=== PATIENT | female | born 1985 | race Caucasian/White ===

== ENCOUNTER 2017-02-08 07:49 | Emergency (ER) | payer BC, OTHER ==
[~2017-02-08] VITALS: Ht 170.2 cm; Wt 72.0 kg
[~2017-02-08 07:49] MED LIST: DICY1TAB26 PO; LOMO PO; ZOFR4TAB3 SL
[2017-02-08 07:55] VITALS: BP 120/81; PULSE 82; RESP 18; TEMP 97.5; O2SAT 100
--- NOTE | 2017-02-08 08:16 | PD ---
HPI Chief Complaint: Musculoskeletal Complaint Time Seen by Provider: 08:13 Travel History International Travel<30 days: No Contact w/Intl Traveler<30days: No Traveled to known affect area: No History of Present Illness HPI This patient complains of left hand pain. 2 hours ago she tripped over her dog and fell and landed on her left hand. No head or neck injury. Symptoms are of moderate severity. Worse with movement. PFSH Past Medical History Medical History: Denies Significant Hx Immunizations Current: Yes Influenza Vaccination: No ?: Not LMP: 02/02/17 Past Surgical History Surgical History: No Previous Surgery Social History Alcohol Use: Yes (SOCIALLY) Tobacco Use: No Substance Use: No Allergies-Medications (Allergen,Severity, Reaction): Coded Allergies: No Known Allergies (Unverified , 02/08/17) Reported Meds & Prescriptions Reported Meds & Active Scripts Active No Active Prescriptions or Reported Medications Review of Systems General / Constitutional: No: Fever HENT: No: Headaches Cardiovascular: No: Chest Pain or Discomfort Physical Exam Narrative SKIN: Focused skin assessment reveals no rash or ulcers. Skin is warm and dry. Palpation shows no induration or nodules. Psych: Normal mood and affect. Normal insight and judgment. Left hand: No obvious deformity. There is tenderness at the lateral aspect of the hand over metacarpals 4 and 5. No bruising. Neurovascularly intact. Bit of swelling in the lateral hand is present Data Data Last Documented VS Vital Signs Date Time Temp Pulse Resp B/P Pulse Ox O2 Delivery O2 Flow Rate FiO2 02/08/17 07:55 97.5 82 18 120/81 100 Orders Hand, Complete ([id number]) (02/08/17 ) [facility] Medical Decision Making Medical Screen Exam Complete: Yes Emergency Medical Condition: Yes Medical Record Reviewed: Yes Differential Diagnosis Hand fracture, finger dislocation, contusion Narrative Course I have reviewed the patient's electronic medical record. I reviewed her left hand x-rays which show no acute fracture Placed her in an ulnar gutter splint given the pain and swelling she has there Recommend ice and elevation and follow-up with her physician Offered her pain medicine but she declines Diagnosis Primary Impression: Contusion of left hand, initial encounter Additional Instructions: Ice and elevate left hand Wear splint Follow-up with your physician Med/Other Pt SpecificInfo: Other Scripts No Active Prescriptions or Reported Meds Disposition: 01 DISCHARGE HOME Condition: Stable Delvin Nick MD Feb 08, 2017 08:16
--- NOTE | 2017-02-08 09:13 | RADHPO ---
EXAM DATE/TIME: 02/08/2017 08:30 [facility] COMPARISON: No previous studies available for comparison. INDICATIONS : Left hand pain; fall this morning. MEDICAL HISTORY : Previous fracture 4th and 5th digits. SURGICAL HISTORY : None. ENCOUNTER: Initial ACUITY: 1 day PAIN SCORE: 2/10 LOCATION: Left hand. FINDINGS: Three view examination of the left hand demonstrates no soft tissue swelling, dislocation, or fractur e. The carpal bones appear intact. The interphalangeal and metacarpophalangeal joints are intact. Bony mineralization is normal. CONCLUSION: No acute disease. Milo Reese MD on February 08, 2017 at 9:10 Board Certified Radiologist. This report was verified electronically.
== END 2017-02-08 09:18 | disposition home or self-care (01) ==
LOC: PHED 07:49
DX: S60.222A Contusion of left hand, initial encounter (principal); W01.0XXA Fall on same level from slipping, tripping and stumbling without subsequent striking against object, initial encounter; Y93.9 Activity, unspecified; Y92.9 Unspecified place or not applicable
CPT/HCPCS: 29125; 73130